=== PATIENT | male | born 1960 | race Caucasian/White ===

== ENCOUNTER 2016-04-20 01:16 | Emergency (ER) | payer MEDICAID ==
[~2016-04-20] VITALS: Ht 167.6 cm; Wt 95.0 kg
[2016-04-20 06:25] VITALS: BP 131/87
== END 2016-04-20 06:28 | disposition home or self-care (01) ==
LOC: EMS 01:18
DX: L98.9 Disorder of the skin and subcutaneous tissue, unspecified (principal); F15.90 Other stimulant use, unspecified, uncomplicated; Z87.891 Personal history of nicotine dependence
CPT/HCPCS: 99281

== ENCOUNTER 2023-10-30 18:45 | Emergency (ER) | payer MEDICAID, OTHER ==
[~2023-10-30] VITALS: Ht 170.2 cm; Wt 95.5 kg
[2023-10-30 18:50] VITALS: BP 144/84; PULSE 92; RESP 18; TEMP 97.7; O2SAT 100
[2023-10-30] MEDS: ACETAMINOPHEN 500 MG TABLET PO ONE (23:20)
[2023-10-30] MEDS: ONDANSETRON 4 MG TABLET PO ONE (23:20)
[2023-10-30 23:23] LABS: BASOPHILS % (AUTO) 1.2 % (0.0-2.0); EOSINOPHILS % (AUTO) 2.9 % (1.0-6.0); HEMATOCRIT 39.9 % (41-53); HEMOGLOBIN 13.7 g/dL (13.5-17.5); LYMPHOCYTES # (AUTO) 1.4 K/uL (1.0-4.8); LYMPHOCYTES % (AUTO) 31.8 % (22.0-44.0); MEAN CORPUSCULAR HEMOGLOBIN 29.6 pg (26.0-34.0); MEAN CORPUSCULAR HGB CONC 34.3 G/dL (31.0-37.0); MEAN CORPUSCULAR VOLUME 86 fL (80-100); MONOCYTES # (AUTO) 0.3 K/uL (0.1-1.0); MONOCYTES % (AUTO) 7.3 % (2.0-9.0); NEUTROPHILS # (AUTO) 2.5 K/uL (1.8-7.7); NEUTROPHILS % (AUTO) 56.8 % (40.0-70.0); PLATELET COUNT (AUTO) 374 K/uL (150-450); RED BLOOD CELL COUNT(AUTO) 4.62 MIL/uL (4.50-5.90); RED CELL DISTRIBUTION WIDTH 13.9 % (11.5-14.5); WHITE BLOOD COUNT (AUTO) 4.4 K/uL (4.5-11.0)
[2023-10-30 23:31] LABS: ANION GAP 9 mmol/L (8-16); CALCIUM, TOTAL 8.8 mg/dL (8.8-10.5); CARBON DIOXIDE 28 mmol/L (22-29); CHLORIDE 107 mmol/L (98-107); CREATININE 0.96 mg/dL (0.60-1.30); GLOMERULAR FILTR. RATE CALC > 60 mL/min (>60); GLUCOSE,RANDOM 116 mg/dL (70-110); POTASSIUM 3.8 mmol/L (3.5-5.1); SODIUM SERUM 144 mmol/L (136-145); UREA NITROGEN, BLOOD 8 mg/dL (7-18)
== END 2023-10-31 07:00 | disposition home or self-care (01) ==
LOC: EMS 18:58
DX: F11.90 Opioid use, unspecified, uncomplicated (principal); R11.0 Nausea; F15.10 Other stimulant abuse, uncomplicated
CPT/HCPCS: 99283; 80048; 85025; 36415; G0480; Q0162